=== PATIENT | male | born 1950 | race Caucasian/White ===

== ENCOUNTER 2023-08-24 06:00 | Inpatient (IN) | payer OTHER ==
[~2023-08-24] VITALS: Ht 182.9 cm; Wt 86.8 kg
[2023-08-24] VITALS (14 sets, daily range): BP systolic 98–148; BP diastolic 59–80; PULSE 60–78; RESP 12–20; TEMP 97.5–98.2; O2SAT 92–100
[~2023-08-24 06:00] MED LIST: AMLO5CAP2 PO; ASPI81CH59 PO; PRE5T PO; ROSU20TA14 PO
[2023-08-24] MEDS: TRANEXAMIC ACID 20 ML ONE (06:51)
[2023-08-24] MEDS: ceFAZolin 2 GM/D5W50ml 50 ML IV ONE (06:52)
[2023-08-24] MEDS ORDERED: PROPOFOL 10 MG/ML 20 ML IV ONE (07:22)
[2023-08-24] MEDS ORDERED: MIDAZOLAM HCL 2MG/2ML 2ml VIAL (1mg/ml) ONE ×2 (07:22→07:47)
[2023-08-24] MEDS ORDERED: fentaNYL CITRATE 100 MCG/2 ML VL ONE (07:22)
[2023-08-24] MEDS ORDERED: MORPHINE SULF PF 5 MG/10 ML VIAL ONE (07:22)
[2023-08-24] MEDS ORDERED: DexAMETHasone SOD PHOS 10MG/1ML VIAL INJ ONE (07:22)
[2023-08-24] MEDS: TETRACAINE 1% INJ 2 ML VIAL IJ ONE (07:23)
[2023-08-24] MEDS ORDERED: DexAMETHasone SOD PHOS 10MG/1ML VIAL INJ IV PRN (08:00)
[2023-08-24] MEDS ORDERED: LABETALOL HCL 5 MG/ML 4ML SYRINGE IV PRN (08:00)
[2023-08-24] MEDS ORDERED: NALOXONE HCL 0.4 MG/ML VIAL IV PRN (08:00)
[2023-08-24] MEDS ORDERED: ONDANSETRON HCL 4 MG/2 ML VIAL IV PRN ×2 (08:00)
[2023-08-24] MEDS ORDERED: HYDROmorphone HCL 2 MG/ML VL/or syr IV PRN (08:00)
[2023-08-24] MEDS ORDERED: ePHEDrine SULFATE 50 MG/ML AMP IV PRN (08:00)
[2023-08-24] MEDS ORDERED: MIDAZOLAM HCL 2MG/2ML 2ml VIAL (1mg/ml) IV PRN (08:00)
[2023-08-24] MEDS: VANCOMYCIN HCL 1000 MG VL ONE (08:21)
[2023-08-24] MEDS: EPINEPHrine HCL 1 MG/1 ML AMP ONE (08:21)
[2023-08-24] MEDS: ROPIVACAINE 0.5% (5MG/ML) 20ML AMPULE IJ ONE (08:49)
[2023-08-24] MEDS: D5W/LACTATED RINGERS 1,000 ML IV SCH (10:15)
[2023-08-24] MEDS ORDERED: oxyCODONE HCL 5MG TAB PO PRN (10:15)
[2023-08-24] MEDS ORDERED: ACETAMINOPHEN 325 MG TAB PO PRN (10:15)
[2023-08-24] MEDS: DexAMETHasone SOD PHOS 4 MG/1ML SDV INJ ONE (10:50)
[2023-08-24 15:53] LABS: Basophils # (auto) 0 10 ^3/uL (0-0.2); Basophils % (auto) 0.1 % (0.0-2.0); Eosinophils # (auto) 0 10 ^3/uL (0-0.8); Eosinophils % (auto) 0.2 % (0.0-7.0); Hematocrit 33.3 % (41.0-53.0); Hemoglobin 10.8 g/dL (13.5-17.5); Lymphocytes # (auto) 0.5 10 ^3/uL (0.4-5.4); Lymphocytes % (auto) 5.2 % (10.0-50.0); Mean Corpuscular Hemoglobin 27.7 pg (28.0-32.0); Mean Corpuscular Hgb Conc. 32.4 g/dL (32.0-36.0); Mean Corpuscular Volume 85.7 fL (80.0-100.0); Monocytes # (auto) 0.3 10 ^3/uL (0-1.3); Monocytes % (auto) 3.2 % (0.0-12.0); Neutrophils # (auto) 9.5 10 ^3/uL (1.6-8.6); Neutrophils % (auto) 91.3 % (37.0-80.0); Red Blood Cells 3.88 10^6/uL (4.5-5.90); Red Cell Distribution Width 15.1 % (11.8-14.3); White Blood Cell 10.4 10^3/uL (4.4-10.8)
[2023-08-24 16:09] LABS: Alanine Aminotransferase 17 U/L (7-40); Albumin 3.7 g/dL (3.2-4.8); Alkaline Phosphatase 47 U/L (46-116); Anion Gap 7 (5-15); Aspartate Aminotransferase 16 U/L (13-40); BUN/Creatinine Ratio 16.2 (10.0-20.0); Blood Urea Nitrogen 11 mg/dL (9-23); Calcium 8.3 mg/dL (8.7-10.4); Carbon Dioxide 22 mmol/L (20-30); Chloride 110 mmol/L (98-107); Glucose 148 mg/dL (74-106); Potassium 3.6 mmol/L (3.5-5.1); Sodium 139 mmol/L (136-145)
[2023-08-24 16:10] LABS: Bilirubin, Total 1.1 mg/dL (0.2-1.0); Total Protein 5.8 g/dL (5.7-8.2)
[2023-08-24] MEDS: methylPREDNISolone SOD SUCC 125 MG/2 ML VL IV SCH (16:14)
[2023-08-24] MEDS: KETOROLAC TROMETH 30 MG/ML 1ML VIAL IV SCH (16:15)
[2023-08-24] MEDS ORDERED: amLODIPine BESYLATE 5 MG TAB PO SCH (16:15)
[2023-08-24] MEDS: ACETAMINOPHEN 325 MG TAB PO SCH (16:15)
[2023-08-24] MEDS: TAMSULOSIN HYDROCHLORIDE 0.4 MG CAP PO SCH (18:00)
[2023-08-24] MEDS ORDERED: PNEUMOCOCCAL VACC POLYS 25 MCG/0.5 ML VIAL IM ONE (18:00)
[2023-08-24] MEDS ORDERED: INFLUENZA QUAD 2023-2024 0.5 ML SYRG IM ONE (18:15)
[2023-08-24] MEDS: ceFAZolin 2 GM/D5W50ml 50 ML IV SCH (18:40)
[2023-08-24] MEDS: amLODIPine BESYLATE 5 MG TAB PO ONE (18:42)
[2023-08-24] MEDS: BENAZEPRIL HCL 10 MG TAB PO ONE (18:42)
[2023-08-24] MEDS: PREGABALIN 25 MG CAP PO SCH (22:07)
[2023-08-24] MEDS: ATORVASTATIN 20 MG TAB PO SCH (22:09)
[2023-08-25] VITALS (20 sets, daily range): BP systolic 97–129; BP diastolic 54–85; PULSE 61–92; RESP 16–19; TEMP 97.4–97.7; O2SAT 91–98
[2023-08-25] MEDS: ASPirin 81 mg TAB PO SCH (09:08)
[2023-08-25] MEDS: TAMSULOSIN HYDROCHLORIDE 0.4 MG CAP PO ONE (09:08)
[2023-08-25] MEDS: predniSONE 5 MG TAB PO SCH (09:08)
[2023-08-25] MEDS: amLODIPine BESYLATE 5 MG TAB PO SCH (09:09)
[2023-08-25] MEDS: BENAZEPRIL HCL 10 MG TAB PO SCH (09:10)
[2023-08-25] MEDS ORDERED: AMLODIPINE BESYLATE BENAZEPRIL PO SCH (10:00)
[2023-08-25] MEDS: oxyCODONE HCL 5MG TAB PO PRN (14:06)
== END 2023-08-25 17:15 | disposition home or self-care (01) | DRG 470 ==
LOC: SUR 06:00 → TELE 10:19 → TELE-CENTR 14:06
PROVIDERS: ADMIT Orthopaedic Surgery; ATTEND Orthopaedic Surgery
PROC: 0SRD069 Replacement of Left Knee Joint with Oxidized Zirconium on Polyethylene Synthetic Substitute, Cemented, Open Approach (ICD-10-PCS; principal; 2023-08-24 07:25)
DX: M17.12 Unilateral primary osteoarthritis, left knee (principal); I10 Essential (primary) hypertension; E78.5 Hyperlipidemia, unspecified; Z87.891 Personal history of nicotine dependence
CPT/HCPCS: 36415; 73560; 80053; 83036; 83735; 85025; 86850; 86900; 86901; 97110; 97116; 97163; 97530; G0378; J0171; J1100; J1885; J2250; J2704